=== PATIENT | male | born 1930 | race Two or more races ===

== ENCOUNTER 2020-02-03 22:23 | Inpatient (IN) | payer OTHER ==
[~2020-02-03] VITALS: Ht 177.8 cm; Wt 88.1 kg
[2020-02-03] MEDS ORDERED: MORPHINE SULFATE 4 MG/ML, 1ML IVPush PRN (22:30)
[2020-02-03 22:54] LABS: BASOPHILS % (AUTO) 1 % (0-1); EOSINOPHILS % (AUTO) 3 % (1-7); LYMPHOCYTES % (AUTO) 21 % (22-44); MEAN CORPUSCULAR HEMOGLOBIN 33.1 pg (27.5-34.5); MEAN CORPUSCULAR HGB CONC 34.1 g/dL (33.2-36.2); MEAN PLATELET VOLUME 9.4 fL (7.4-10.4); MONOCYTES % (AUTO) 5 % (2-9); NEUTROPHILS % (AUTO) 71 % (42-75); PLATELET COUNT 118 x10^3/uL (130-400); RED CELL DISTRIBUTION WIDTH 12.4 % (9.4-14.8)
[2020-02-03 23:00] LABS: MD NO
[2020-02-03] MEDS ORDERED: PLEASE ENTER ALLERGIES MC SCH (23:00)
[2020-02-03 23:07] LABS: ALANINE AMINOTRANSFERASE 29 U/L (12-78); ALBUMIN 3.5 g/dL (3.4-5.0); ANION GAP 9 mmol/L (5-15); CALCIUM 8.8 mg/dL (8.5-10.1); CHLORIDE 109 mmol/L (98-107)
[2020-02-03 23:17] LABS: ALKALINE PHOSPHATASE 106 U/L (45-117); BILIRUBIN,TOTAL 0.4 mg/dL (0.2-1.0); CREATININE 2.71 mg/dL (0.7-1.3); FREE T4 (FREE THYROXINE) 1.38 ng/dL (0.76-1.46); TOTAL PROTEIN 7.5 g/dL (6.4-8.2); TROPONIN I 0.026 ng/mL (0.000-0.045)
[2020-02-03] MEDS ORDERED: ONDANSETRON 2MG/ML, 2ML ONE (23:19)
[2020-02-03] MEDS ORDERED: MORPHINE SULFATE 4 MG/ML, 1ML ONE (23:19)
--- NOTE | 2020-02-03 23:26 | NUR ---
PT HAD SOME MORE N/V. ERP NOTIFIED. MEDICATED FOR PAIN AND NAUSEA PER ORDERS. TO CT VIA [facility].
[2020-02-03] MEDS ORDERED: ONDANSETRON 2MG/ML, 2ML IVPush ONE (23:30)
[2020-02-03] MEDS ORDERED: OMNIPAQUE 350 MG/ML, 100ML BOTTLE ONE (23:45)
--- NOTE | 2020-02-04 00:01 | NUR ---
REPORTED TO NIESHA RAMOS.
[2020-02-04] MEDS ORDERED: SODIUM CHLORIDE 0.9% 1,000ML IVBOLUS ONE (00:30)
--- NOTE | 2020-02-04 00:54 | NUR ---
Pt provided with urinal and asked to provide urine sample. Pt states he cannot urinate at this time as he does not have to. Pt asked to please try again in a few minutes, pt verbalized understanding
[2020-02-04] MEDS ORDERED: CEFTRIAXONE PMX 1GM/50ML 50 ML ONE (01:18)
[2020-02-04] MEDS ORDERED: CEFTRIAXONE PMX 1GM/50ML 50 ML IV ONE (01:30)
[2020-02-04] MEDS ORDERED: BUPIVACAINE/PF 0.5% ONE (01:44)
[2020-02-04] MEDS ORDERED: EPINEPHRINE 1 MG/ML, 1ML ONE (01:44)
[2020-02-04 02:30] VITALS: BP 157/82
[2020-02-04] MEDS ORDERED: SODIUM CHLORIDE 0.9% 1,000 ML IV SCH (04:00)
[2020-02-04] MEDS ORDERED: ONDANSETRON 2MG/ML, 2ML IVPush PRN ×2 (04:00→06:30)
[2020-02-04] MEDS ORDERED: BUPIVACAINE/PF-EPI 0.5% 1:200K IM ONE (04:42)
[2020-02-04] MEDS: INSULIN LISPRO 100 UNITS/ML, PEN SQ-INSULIN SCH ×4 (05:30→21:17)
[2020-02-04 05:42] LABS: MICROSCOPIC AUTO
[2020-02-04] MEDS ORDERED: FENTANYL PF 250 MCG/5ML ONE (05:48)
[2020-02-04] MEDS ORDERED: CEFOTETAN PMX 1GM/50ML 50 ML ONE ×2 (05:51→06:13)
[2020-02-04] MEDS ORDERED: CEFOTETAN PMX 1GM/50ML 0 ML ONE (05:51)
[2020-02-04] MEDS ORDERED: morphine SULFATE 10 MG/ML, 1ML IVPush PRN (06:30)
[2020-02-04] MEDS ORDERED: ACETAMINOPHEN 325 MG TABLET PO PRN (06:30)
[2020-02-04] MEDS ORDERED: MEPERIDINE/PF 25MG/0.5ML IVPush PRN (06:30)
[2020-02-04] MEDS ORDERED: HYDROmorphone 1 MG/ML, 1ML INJ IVPush PRN (06:30)
[2020-02-04] MEDS ORDERED: hydrALAzine 20 MG/ML, 1ML IV PRN (06:30)
[2020-02-04] MEDS ORDERED: OXYcodone 5 MG/5 ML ORAL.SOL UDC PO PRN (06:30)
[2020-02-04] MEDS ORDERED: LABETALOL 5MG/ML, 20ML IV PRN (06:30)
[2020-02-04] MEDS ORDERED: SUCCINYLCHOLINE 20 MG/ML, 10ML ONE (06:35)
[2020-02-04] MEDS ORDERED: NEOSTIGMINE 1 MG/ML, 10ML ONE (06:35)
[2020-02-04] MEDS ORDERED: GLYCOPYRROLATE 0.2MG/1ML, 5ML ONE (06:35)
[2020-02-04] MEDS ORDERED: CEFAZOLIN 1,000 MG ONE (06:35)
[2020-02-04] MEDS ORDERED: PROPOFOL 10 MG/ML, 20ML ONE (06:35)
[2020-02-04] MEDS ORDERED: ROCURONIUM 10MG/ML,5ML ONE (06:35)
[2020-02-04] MEDS ORDERED: SUGAMMADEX 200 MG/2 ML IVPush ONE (06:36)
[2020-02-04] MEDS ORDERED: INSULIN SINGLE DOSE, ER ONE (07:05)
[2020-02-04] MEDS ORDERED: INSULIN REGULAR 100 UNITS/ML, 3ML VIAL SQ-INSULIN ONE (07:30)
[2020-02-04] MEDS ORDERED: FENTANYL PF 100 MCG/2ML ONE (07:31)
[2020-02-04] MEDS: FENTANYL PF 100 MCG/2ML IV PRN ×2 (07:34→07:48)
[2020-02-04 12:52] VITALS: BP 131/81
[2020-02-04 19:47] VITALS: BP 171/83
[2020-02-04] MEDS: SODIUM CHLORIDE 0.9% 1,000 ML IV SCH ×2 (19:56→20:14)
[2020-02-04 20:23] VITALS: BP 161/82
[2020-02-04] MEDS: morphine SULFATE 10 MG/ML, 1ML IV PRN (21:27)
[2020-02-04] MEDS ORDERED: TERA5CAP3 PO (23:32)
[2020-02-04] MEDS ORDERED: INSU100V5 SQ-INSULIN ×2 (23:32)
[2020-02-04] MEDS ORDERED: LOSA100T14 PO (23:32)
[2020-02-04] MEDS ORDERED: CHOL20008 PO (23:32)
[2020-02-04] MEDS ORDERED: INSU100I53 SQ (23:32)
[2020-02-04] MEDS ORDERED: ASPI-191 PO (23:32)
[2020-02-04] MEDS ORDERED: CHLO25TA PO (23:32)
[2020-02-04] MEDS ORDERED: FINA5TAB4 PO (23:32)
[2020-02-04] MEDS ORDERED: LEVO125T PO (23:32)
[2020-02-04] MEDS ORDERED: LOVA40TA2 PO (23:32)
[2020-02-04] MEDS ORDERED: CARV6.252 PO (23:32)
[2020-02-04] MEDS ORDERED: NIFE-6 PO (23:32)
[2020-02-05 00:36] VITALS: BP 155/76
[2020-02-05 04:16] VITALS: BP 182/73
[2020-02-05 04:47] VITALS: BP 168/78
[2020-02-05 05:32] LABS: BASOPHILS % (AUTO) 1 % (0-1); EOSINOPHILS % (AUTO) 0 % (1-7); LYMPHOCYTES % (AUTO) 15 % (22-44); MEAN CORPUSCULAR HEMOGLOBIN 33.8 pg (27.5-34.5); MEAN CORPUSCULAR HGB CONC 33.8 g/dL (33.2-36.2); MEAN PLATELET VOLUME 9.8 fL (7.4-10.4); MONOCYTES % (AUTO) 5 % (2-9); NEUTROPHILS % (AUTO) 79 % (42-75); PLATELET COUNT 70 x10^3/uL (130-400); RED BLOOD COUNT 3.44 x10^6/uL (4.38-5.82); RED CELL DISTRIBUTION WIDTH 12.4 % (9.4-14.8)
[2020-02-05 06:15] LABS: MD NO
[2020-02-05 06:38] LABS: ANION GAP 5 mmol/L (5-15); CALCIUM 7.8 mg/dL (8.5-10.1); CHLORIDE 117 mmol/L (98-107)
[2020-02-05 06:39] LABS: CREATININE 3.22 mg/dL (0.7-1.3)
[2020-02-05 07:30] VITALS: BP 186/75
[2020-02-05] MEDS: LABETALOL 5MG/ML, 20ML IVPush PRN (07:44)
[2020-02-05] MEDS: INSULIN LISPRO 100 UNITS/ML, PEN SQ-INSULIN SCH ×4 (07:47→20:36)
[2020-02-05] MEDS: SODIUM CHLORIDE 0.9% 1,000 ML IV SCH ×4 (07:48→22:40)
[2020-02-05] MEDS: CARVEDILOL 6.25 MG TABLET PO SCH ×2 (09:09→20:28)
[2020-02-05] MEDS: LOSARTAN 100 MG TAB PO SCH (09:09)
[2020-02-05] MEDS: niFEDipine ER 60 MG TABLET.ER PO SCH (09:09)
[2020-02-05] MEDS: LEVOTHYROXINE 125 MCG TABLET PO SCH (09:09)
[2020-02-05] MEDS: CHLORTHALIDONE 25 MG TABLET PO SCH (09:09)
[2020-02-05] MEDS: FINASTERIDE 5 MG TABLET PO SCH (09:31)
[2020-02-05] MEDS: morphine SULFATE 10 MG/ML, 1ML IV PRN ×2 (11:05→14:28)
[2020-02-05 13:07] VITALS: BP 118/64
[2020-02-05 18:56] VITALS: BP 123/72
[2020-02-05] MEDS: LOVASTATIN 40 MG TABLET PO SCH (20:28)
[2020-02-05] MEDS: TERAZOSIN 5MG CAPSULE PO SCH (20:28)
[2020-02-05] MEDS: ASPIRIN 81 MG TABLET EC PO SCH (20:29)
[2020-02-06 01:05] VITALS: BP 129/72
[2020-02-06 05:51] LABS: BASOPHILS % (AUTO) 1 % (0-1); EOSINOPHILS % (AUTO) 7 % (1-7); LYMPHOCYTES % (AUTO) 25 % (22-44); MEAN CORPUSCULAR HEMOGLOBIN 33.9 pg (27.5-34.5); MEAN CORPUSCULAR HGB CONC 34.1 g/dL (33.2-36.2); MEAN PLATELET VOLUME 9.5 fL (7.4-10.4); MONOCYTES % (AUTO) 5 % (2-9); NEUTROPHILS % (AUTO) 62 % (42-75); PLATELET COUNT 51 x10^3/uL (130-400); RED BLOOD COUNT 2.76 x10^6/uL (4.38-5.82); RED CELL DISTRIBUTION WIDTH 12.8 % (9.4-14.8)
[2020-02-06 06:01] LABS: ANION GAP 7 mmol/L (5-15); CALCIUM 7.2 mg/dL (8.5-10.1); CHLORIDE 112 mmol/L (98-107)
[2020-02-06 06:02] LABS: CREATININE 3.24 mg/dL (0.7-1.3)
[2020-02-06] MEDS: LEVOTHYROXINE 125 MCG TABLET PO SCH (06:24)
[2020-02-06 06:54] LABS: MD SCAN
[2020-02-06 06:55] VITALS: BP 151/73
[2020-02-06] MEDS: INSULIN LISPRO 100 UNITS/ML, PEN SQ-INSULIN SCH ×4 (07:31→21:55)
[2020-02-06] MEDS: LOSARTAN 100 MG TAB PO SCH (08:13)
[2020-02-06] MEDS: morphine SULFATE 10 MG/ML, 1ML IV PRN ×2 (08:13→15:16)
[2020-02-06] MEDS: CARVEDILOL 6.25 MG TABLET PO SCH ×2 (08:13→21:55)
[2020-02-06] MEDS: CHLORTHALIDONE 25 MG TABLET PO SCH (08:14)
[2020-02-06] MEDS: niFEDipine ER 60 MG TABLET.ER PO SCH (08:14)
[2020-02-06] MEDS: FINASTERIDE 5 MG TABLET PO SCH (08:14)
[2020-02-06] MEDS: SODIUM CHLORIDE 0.9% 1,000 ML IV SCH ×2 (08:24→21:56)
[2020-02-06] MEDS ORDERED: CHOLECALCIFEROL 400 UNITS TABLET PO SCH (09:00)
[2020-02-06 12:28] VITALS: BP 150/72
[2020-02-06 18:44] VITALS: BP 131/68
[2020-02-06] MEDS: LOVASTATIN 40 MG TABLET PO SCH (21:54)
[2020-02-06] MEDS: ASPIRIN 81 MG TABLET EC PO SCH (21:55)
[2020-02-06] MEDS: TERAZOSIN 5MG CAPSULE PO SCH (21:55)
[2020-02-07 01:14] VITALS: BP 108/69
[2020-02-07] MEDS: SODIUM CHLORIDE 0.9% 1,000 ML IV SCH ×2 (01:19→11:21)
[2020-02-07 05:57] LABS: ANION GAP 9 mmol/L (5-15); CALCIUM 7.8 mg/dL (8.5-10.1); CHLORIDE 113 mmol/L (98-107)
[2020-02-07 05:58] LABS: CREATININE 3.66 mg/dL (0.7-1.3)
[2020-02-07 06:11] LABS: BASOPHILS % (AUTO) 1 % (0-1); EOSINOPHILS % (AUTO) 7 % (1-7); LYMPHOCYTES % (AUTO) 18 % (22-44); MEAN CORPUSCULAR HEMOGLOBIN 34.7 pg (27.5-34.5); MEAN CORPUSCULAR HGB CONC 33.9 g/dL (33.2-36.2); MEAN PLATELET VOLUME 9.7 fL (7.4-10.4); MONOCYTES % (AUTO) 5 % (2-9); NEUTROPHILS % (AUTO) 70 % (42-75); PLATELET COUNT 58 x10^3/uL (130-400); RED BLOOD COUNT 3.15 x10^6/uL (4.38-5.82); RED CELL DISTRIBUTION WIDTH 12.5 % (9.4-14.8)
[2020-02-07] MEDS: LEVOTHYROXINE 125 MCG TABLET PO SCH (06:36)
[2020-02-07 06:52] VITALS: BP 102/57
[2020-02-07 07:09] LABS: MD SCAN
[2020-02-07] MEDS: niFEDipine ER 60 MG TABLET.ER PO SCH (08:10)
[2020-02-07] MEDS: CARVEDILOL 6.25 MG TABLET PO SCH ×2 (08:10→21:43)
[2020-02-07] MEDS: LOSARTAN 100 MG TAB PO SCH (08:12)
[2020-02-07] MEDS: FINASTERIDE 5 MG TABLET PO SCH (08:13)
[2020-02-07] MEDS: CHLORTHALIDONE 25 MG TABLET PO SCH (08:13)
[2020-02-07 08:15] VITALS: BP 135/61
[2020-02-07] MEDS: INSULIN LISPRO 100 UNITS/ML, PEN SQ-INSULIN SCH ×4 (08:16→21:44)
[2020-02-07 12:44] VITALS: BP 122/60
[2020-02-07] MEDS ORDERED: CALCIUM CARBONATE 500 MG TAB.CHEW ONE (16:37)
[2020-02-07] MEDS: CALCIUM CARBONATE 500 MG TAB.CHEW PO PRN ×2 (16:39→21:43)
[2020-02-07] MEDS ORDERED: OMEPRAZOLE 20 MG CAPSULE.DR PO PRN (17:00)
[2020-02-07] MEDS ORDERED: FUROSEMIDE 20 MG/2 ML IV ONE (17:30)
[2020-02-07 19:55] VITALS: BP 140/63
[2020-02-07] MEDS: ASPIRIN 81 MG TABLET EC PO SCH (21:43)
[2020-02-07] MEDS: TERAZOSIN 5MG CAPSULE PO SCH (21:43)
[2020-02-07] MEDS: LOVASTATIN 40 MG TABLET PO SCH (21:43)
[2020-02-08 01:39] VITALS: BP 140/69
[2020-02-08 04:35] LABS: BASOPHILS % (AUTO) 1 % (0-1); EOSINOPHILS % (AUTO) 7 % (1-7); LYMPHOCYTES % (AUTO) 23 % (22-44); MEAN CORPUSCULAR HEMOGLOBIN 33.4 pg (27.5-34.5); MEAN CORPUSCULAR HGB CONC 34.1 g/dL (33.2-36.2); MEAN PLATELET VOLUME 9.7 fL (7.4-10.4); MONOCYTES % (AUTO) 5 % (2-9); NEUTROPHILS % (AUTO) 64 % (42-75); PLATELET COUNT 62 x10^3/uL (130-400); RED BLOOD COUNT 3.18 x10^6/uL (4.38-5.82); RED CELL DISTRIBUTION WIDTH 12.3 % (9.4-14.8)
[2020-02-08 04:40] LABS: ANION GAP 9 mmol/L (5-15); CHLORIDE 111 mmol/L (98-107); CREATININE 3.46 mg/dL (0.7-1.3)
[2020-02-08 04:44] LABS: MD NO
[2020-02-08] MEDS: LEVOTHYROXINE 125 MCG TABLET PO SCH (06:22)
[2020-02-08 06:39] VITALS: BP 159/72
[2020-02-08] MEDS: LOSARTAN 100 MG TAB PO SCH (07:48)
[2020-02-08] MEDS: INSULIN LISPRO 100 UNITS/ML, PEN SQ-INSULIN SCH ×4 (07:48→21:58)
[2020-02-08] MEDS: FINASTERIDE 5 MG TABLET PO SCH (07:49)
[2020-02-08] MEDS: niFEDipine ER 60 MG TABLET.ER PO SCH (07:49)
[2020-02-08] MEDS: CHLORTHALIDONE 25 MG TABLET PO SCH (07:49)
[2020-02-08] MEDS: CARVEDILOL 6.25 MG TABLET PO SCH ×2 (07:49→21:50)
[2020-02-08 14:35] VITALS: BP 122/64
[2020-02-08] MEDS ORDERED: ALBUTEROL HFA 90 MCG/SPRAY INH PRN (16:00)
[2020-02-08] MEDS: FUROSEMIDE 20 MG/2 ML IV SCH (16:06)
[2020-02-08 19:44] VITALS: BP 129/76
[2020-02-08] MEDS: TERAZOSIN 5MG CAPSULE PO SCH (21:50)
[2020-02-08] MEDS: ASPIRIN 81 MG TABLET EC PO SCH (21:50)
[2020-02-08] MEDS: LOVASTATIN 40 MG TABLET PO SCH (21:50)
[2020-02-09 01:08] VITALS: BP 157/77
[2020-02-09] MEDS: LEVOTHYROXINE 125 MCG TABLET PO SCH (06:09)
[2020-02-09 07:00] VITALS: BP 152/73
[2020-02-09] MEDS: FINASTERIDE 5 MG TABLET PO SCH (07:41)
[2020-02-09] MEDS: INSULIN LISPRO 100 UNITS/ML, PEN SQ-INSULIN SCH ×4 (07:41→21:52)
[2020-02-09] MEDS: CHLORTHALIDONE 25 MG TABLET PO SCH (07:42)
[2020-02-09] MEDS: CARVEDILOL 6.25 MG TABLET PO SCH ×2 (07:42→21:41)
[2020-02-09] MEDS: FUROSEMIDE 20 MG/2 ML IV SCH ×2 (07:42→15:48)
[2020-02-09] MEDS: niFEDipine ER 60 MG TABLET.ER PO SCH (07:42)
[2020-02-09 14:45] VITALS: BP 129/72
[2020-02-09 20:48] VITALS: BP 150/74
[2020-02-09] MEDS: CALCIUM CARBONATE 500 MG TAB.CHEW PO PRN (21:40)
[2020-02-09] MEDS: ASPIRIN 81 MG TABLET EC PO SCH (21:41)
[2020-02-09] MEDS: TERAZOSIN 5MG CAPSULE PO SCH (21:41)
[2020-02-09] MEDS: LOVASTATIN 40 MG TABLET PO SCH (21:51)
[2020-02-10 01:14] VITALS: BP 162/79
[2020-02-10 04:49] LABS: BASOPHILS % (AUTO) 1 % (0-1); EOSINOPHILS % (AUTO) 7 % (1-7); LYMPHOCYTES % (AUTO) 25 % (22-44); MEAN CORPUSCULAR HEMOGLOBIN 33.3 pg (27.5-34.5); MEAN CORPUSCULAR HGB CONC 34.5 g/dL (33.2-36.2); MEAN PLATELET VOLUME 9.4 fL (7.4-10.4); MONOCYTES % (AUTO) 7 % (2-9); NEUTROPHILS % (AUTO) 60 % (42-75); PLATELET COUNT 89 x10^3/uL (130-400); RED BLOOD COUNT 3.01 x10^6/uL (4.38-5.82); RED CELL DISTRIBUTION WIDTH 12.2 % (9.4-14.8)
[2020-02-10 04:55] LABS: CHLORIDE 109 mmol/L (98-107)
[2020-02-10 04:57] LABS: MD NO
[2020-02-10 05:00] LABS: ANION GAP 6 mmol/L (5-15); CALCIUM 8.3 mg/dL (8.5-10.1); CREATININE 2.82 mg/dL (0.7-1.3)
[2020-02-10] MEDS: LEVOTHYROXINE 125 MCG TABLET PO SCH (06:24)
[2020-02-10] MEDS: INSULIN LISPRO 100 UNITS/ML, PEN SQ-INSULIN SCH ×4 (07:00→21:03)
[2020-02-10 08:56] VITALS: BP 165/80
[2020-02-10] MEDS: CHLORTHALIDONE 25 MG TABLET PO SCH (09:15)
[2020-02-10] MEDS: niFEDipine ER 60 MG TABLET.ER PO SCH (09:15)
[2020-02-10] MEDS: FUROSEMIDE 20 MG/2 ML IV SCH (09:16)
[2020-02-10] MEDS: CARVEDILOL 6.25 MG TABLET PO SCH ×2 (09:16→21:03)
[2020-02-10] MEDS: FINASTERIDE 5 MG TABLET PO SCH (09:23)
[2020-02-10] MEDS: ASPIRIN 81 MG TABLET EC PO SCH (11:58)
[2020-02-10 13:01] VITALS: BP 131/69
[2020-02-10] MEDS ORDERED: MORPHINE SULFATE 4 MG/ML, 1ML ONE (14:15)
[2020-02-10] MEDS: morphine SULFATE 10 MG/ML, 1ML IV PRN (14:18)
[2020-02-10] MEDS: CALCIUM CARBONATE 500 MG TAB.CHEW PO PRN ×2 (16:40→21:03)
[2020-02-10 19:31] VITALS: BP 137/68
[2020-02-10] MEDS: LOVASTATIN 40 MG TABLET PO SCH (21:03)
[2020-02-10] MEDS: TERAZOSIN 5MG CAPSULE PO SCH (21:04)
[2020-02-11 02:59] VITALS: BP 186/76
[2020-02-11 04:59] LABS: BASOPHILS % (AUTO) 1 % (0-1); EOSINOPHILS % (AUTO) 7 % (1-7); LYMPHOCYTES % (AUTO) 16 % (22-44); MEAN CORPUSCULAR HEMOGLOBIN 33.5 pg (27.5-34.5); MEAN CORPUSCULAR HGB CONC 34.7 g/dL (33.2-36.2); MEAN PLATELET VOLUME 9.7 fL (7.4-10.4); MONOCYTES % (AUTO) 6 % (2-9); NEUTROPHILS % (AUTO) 71 % (42-75); PLATELET COUNT 102 x10^3/uL (130-400); RED BLOOD COUNT 2.98 x10^6/uL (4.38-5.82); RED CELL DISTRIBUTION WIDTH 12.3 % (9.4-14.8)
[2020-02-11 05:02] LABS: MD NO
[2020-02-11 05:08] LABS: ANION GAP 8 mmol/L (5-15); CALCIUM 8.5 mg/dL (8.5-10.1); CHLORIDE 109 mmol/L (98-107)
[2020-02-11] MEDS: LEVOTHYROXINE 125 MCG TABLET PO SCH (06:00)
[2020-02-11 07:15] VITALS: BP 168/73
[2020-02-11] MEDS: INSULIN LISPRO 100 UNITS/ML, PEN SQ-INSULIN SCH ×4 (08:23→20:42)
[2020-02-11] MEDS: CHLORTHALIDONE 25 MG TABLET PO SCH (08:24)
[2020-02-11] MEDS: CARVEDILOL 6.25 MG TABLET PO SCH ×2 (08:24→20:42)
[2020-02-11] MEDS: niFEDipine ER 60 MG TABLET.ER PO SCH (08:24)
[2020-02-11] MEDS: FINASTERIDE 5 MG TABLET PO SCH (09:01)
[2020-02-11 13:15] VITALS: BP 136/72
[2020-02-11 15:59] LABS: INTERNATIONAL NORMALIZED RATIO 0.98 (0.93-1.1); PROTHROMBIN TIME 10.1 Seconds (9.6-11.5)
[2020-02-11] MEDS: CALCIUM CARBONATE 500 MG TAB.CHEW PO PRN (18:16)
[2020-02-11 19:35] VITALS: BP 135/72
[2020-02-11] MEDS: ASPIRIN 81 MG TABLET EC PO SCH (20:42)
[2020-02-11] MEDS: TERAZOSIN 5MG CAPSULE PO SCH (20:42)
[2020-02-11] MEDS: LOVASTATIN 40 MG TABLET PO SCH (20:42)
[2020-02-12 02:15] VITALS: BP 148/75
[2020-02-12 05:06] LABS: ANION GAP 7 mmol/L (5-15); CALCIUM 8.6 mg/dL (8.5-10.1); CHLORIDE 108 mmol/L (98-107); CREATININE 2.63 mg/dL (0.7-1.3)
[2020-02-12 05:07] LABS: BASOPHILS % (AUTO) 1 % (0-1); EOSINOPHILS % (AUTO) 7 % (1-7); LYMPHOCYTES % (AUTO) 26 % (22-44); MEAN CORPUSCULAR HGB CONC 35.1 g/dL (33.2-36.2); MEAN PLATELET VOLUME 9.9 fL (7.4-10.4); MONOCYTES % (AUTO) 6 % (2-9); NEUTROPHILS % (AUTO) 60 % (42-75); PLATELET COUNT 118 x10^3/uL (130-400); RED BLOOD COUNT 2.79 x10^6/uL (4.38-5.82); RED CELL DISTRIBUTION WIDTH 12.4 % (9.4-14.8)
[2020-02-12 05:12] LABS: MD NO
[2020-02-12] MEDS: LEVOTHYROXINE 125 MCG TABLET PO SCH (06:14)
[2020-02-12 08:00] VITALS: BP 174/75
[2020-02-12] MEDS: INSULIN LISPRO 100 UNITS/ML, PEN SQ-INSULIN SCH ×3 (08:18→16:33)
[2020-02-12] MEDS: CARVEDILOL 6.25 MG TABLET PO SCH (08:19)
[2020-02-12] MEDS: CHLORTHALIDONE 25 MG TABLET PO SCH (08:19)
[2020-02-12] MEDS: FINASTERIDE 5 MG TABLET PO SCH (08:42)
[2020-02-12] MEDS: niFEDipine ER 60 MG TABLET.ER PO SCH (08:43)
[2020-02-12 08:59] VITALS: BP 173/71
[2020-02-12] MEDS: LABETALOL 5MG/ML, 20ML IVPush PRN (09:03)
[2020-02-12 09:43] VITALS: BP 144/69
[2020-02-12 14:18] VITALS: BP 121/64
[2020-02-12 17:19] VITALS: BP 126/63
== END 2020-02-12 17:45 | disposition home health service (06) | DRG 356 ==
LOC: ED 02-04 01:21 → EDIP 02-04 01:33 → 3N 02-04 02:34 → 4NE 02-04 08:14
PROVIDERS: ADMIT Family Medicine; ATTEND Family Medicine
PROC: 0WJG0ZZ Inspection of Peritoneal Cavity, Open Approach (ICD-10-PCS; principal; 2020-02-04 06:00)
DX: K52.9 Noninfective gastroenteritis and colitis, unspecified (principal); K55.059 Acute (reversible) ischemia of intestine, part and extent unspecified; N17.9 Acute kidney failure, unspecified; N18.4 Chronic kidney disease, stage 4 (severe); D53.9 Nutritional anemia, unspecified; D69.6 Thrombocytopenia, unspecified; Z66 Do not resuscitate; K63.89 Other specified diseases of intestine; E03.9 Hypothyroidism, unspecified; E11.22 Type 2 diabetes mellitus with diabetic chronic kidney disease; E78.5 Hyperlipidemia, unspecified; I12.9 Hypertensive chronic kidney disease with stage 1 through stage 4 chronic kidney disease, or unspecified chronic kidney disease; N40.0 Benign prostatic hyperplasia without lower urinary tract symptoms; G51.0 Bell's palsy; Z20.828 Contact with and (suspected) exposure to other viral communicable diseases; Z90.49 Acquired absence of other specified parts of digestive tract; Z53.31 Laparoscopic surgical procedure converted to open procedure; Z79.4 Long term (current) use of insulin; Z86.73 Personal history of transient ischemic attack (TIA), and cerebral infarction without residual deficits
CPT/HCPCS: 36415; 96374; 96375; 99285; S0020; 71045; 74176; 74177; 76770; 80048; 80053; 81001; 82607; 82962; 83036; 83605; 83690; 84439; 84443; 84484; 85014; 85018; 85025; 85610; 87635; 93005; 93306; G0378; J0171; J0690; J0696; J2405; J2704; J2710; J3010; Q9967; J0330; J1815; J1940; J2270; J7030